=== PATIENT | female | born 1935 | race Asian ===

== ENCOUNTER 2019-01-31 17:45 | Inpatient (IN) | payer MEDICARE, OTHER ==
[2019-01-31] MEDS ORDERED: ONDANSETRON 4 MG INJ IV ×2 (18:30→20:00)
[2019-01-31] MEDS ORDERED: ACETAMINOPHEN 325 MG TAB PO (18:30)
[2019-01-31] MEDS: SOD CHLORIDE 0.9% 1,000 ML IV (18:55)
[2019-01-31 18:56] LABS: ADD MAN DIFF? NO
[2019-01-31 19:00] LABS: BASOPHIL # 0.1 10^3/ul (0.0-0.1); EOSINOPHILS # 0.3 10^3/ul (0.0-0.5); EOSINOPHILS % 5.1 % (0.0-7.0); HEMATOCRIT 25.5 % (37.0-47.0); LYMPHOCYTES # 1.4 10^3/ul (0.8-2.9); LYMPHOCYTES % 21.6 % (15.0-51.0); MEAN CORPUSCULAR HEMOGLOBIN 30.1 pg (29.0-33.0); MEAN CORPUSCULAR HGB CONC 31.4 g/dl (32.0-37.0); MEAN CORPUSCULAR VOLUME 95.9 fl (82.0-101.0); MEAN PLATELET VOLUME 11.1 fl (7.4-10.4); MONOCYTE # 0.6 10^3/ul (0.3-0.9); NEUTROPHIL # 3.9 10^3/ul (1.6-7.5); NUCLEATED RED BLOOD CELLS # 0.1 10^3/ul (0.0-0.0); NUCLEATED RED BLOOD CELLS% 1.8 /100WBC (0.0-0.0); PLATELET COUNT 204 10^3/UL (140-415); RED BLOOD COUNT 2.66 10^6/ul (4.20-5.40); RED CELL DISTRIBUTION WIDTH 15.6 % (11.5-14.5)
[2019-01-31 19:00] LABS: WHITE BLOOD COUNT 6.2 10^3/ul (4.8-10.8)
[2019-01-31 19:19] LABS: PROTIME 13.3 Sec (11.9-14.9)
[2019-01-31 19:20] LABS: PARTIAL THROMBOPLASTIN TIME 35.8 Sec (23.0-35.0)
[2019-01-31 19:25] LABS: ALANINE AMINOTRANSFERASE 334 IU/L (13-69); ALBUMIN 3.5 g/dl (3.3-4.9); ALBUMIN/GLOBULIN RATIO 1.09; ALKALINE PHOSPHATASE 324 IU/L (42-121); ANION GAP 9 (5-13); ASPARTATE AMINO TRANSFERASE 304 IU/L (15-46); BILIRUBIN,INDIRECT 0.6 mg/dl (0-1.1); BILIRUBIN,TOTAL 0.6 mg/dl (0.2-1.3); BLOOD UREA NITROGEN 30 mg/dl (7-20); CALCIUM 8.9 mg/dl (8.4-10.2); CARBON DIOXIDE 21 mmol/L (21-31); CHLORIDE 108 mmol/L (97-110); CREATINE KINASE 50 IU/L (23-200); CREATININE 1.58 mg/dl (0.44-1.00); GLUCOSE 108 mg/dl (70-220); POTASSIUM 4.5 mmol/L (3.5-5.1); SODIUM 138 mmol/L (135-144); TOTAL PROTEIN 6.7 g/dl (6.1-8.1)
[2019-01-31 19:36] LABS: CK INDEX 0.8; CK-MB 0.42 ng/ml (0.0-2.4); TROPONIN-I 0.014 ng/ml (0.000-0.120)
[2019-01-31] MEDS ORDERED: NACL 0.9% 3 ML SYG IV (20:00)
[2019-01-31] MEDS ORDERED: MECLIZINE 25 MG TAB PO (20:00)
[2019-01-31] MEDS ORDERED: DOCUSATE SODIUM 100 MG CAP PO (20:00)
[2019-01-31] MEDS ORDERED: ZOLPIDEM 5 MG TAB PO (20:00)
[2019-01-31 20:09] LABS: B-TYPE NATRIURETIC PEPTIDE 12500 PG/ML (0-450)
[2019-01-31 20:19] LABS: HAAIG REFLEX REFLEX FILED
[2019-01-31 20:58] LABS: HEPATITIS B SURFACE ANTIGEN NEGATIVE (NEGATIVE)
[2019-01-31] MEDS ORDERED: NON-FORMULARY/PATIENT OWN MED (Pravastatin Sodium* 40 MG) PO (21:00)
[2019-01-31 21:16] LABS: HEPATITIS B CORE ANTIBODY NEGATIVE (NEGATIVE); HEPATITIS C VIRAL ANTIBODY NEGATIVE (NEGATIVE)
[2019-02-01 01:42] LABS: IMMEDIATE SPIN CROSSMATCH 1 1
[2019-02-01] MEDS: PANTOPRAZOLE (EC) 40 MG TAB PO (06:04)
[2019-02-01] MEDS ORDERED: NON-FORMULARY/PATIENT OWN MED (Esomeprazole Magnesium 40 MG) PO (07:00)
[2019-02-01] MEDS: DRONEDARONE HYDROCHLORIDE 400 MG TAB PO (08:43)
[2019-02-01] MEDS: HYDROCHLOROTHIAZIDE 12.5 MG CAP PO (08:43)
[2019-02-01] MEDS: LOSARTAN 50 MG TAB PO (08:43)
[2019-02-01] MEDS ORDERED: NON-FORMULARY/PATIENT OWN MED (Losartan-Hydrochlorothiazide (Losartan-HCTZ) 1 TAB) PO (09:00)
[2019-02-01 09:06] LABS: ADD MAN DIFF? NO
[2019-02-01 09:16] LABS: BASOPHIL # 0.1 10^3/ul (0.0-0.1); EOSINOPHILS # 0.3 10^3/ul (0.0-0.5); EOSINOPHILS % 5.1 % (0.0-7.0); HEMATOCRIT 31.5 % (37.0-47.0); LYMPHOCYTES # 1.4 10^3/ul (0.8-2.9); LYMPHOCYTES % 21.4 % (15.0-51.0); MEAN CORPUSCULAR HEMOGLOBIN 29.4 pg (29.0-33.0); MEAN CORPUSCULAR HGB CONC 31.7 g/dl (32.0-37.0); MEAN CORPUSCULAR VOLUME 92.6 fl (82.0-101.0); MEAN PLATELET VOLUME 11.4 fl (7.4-10.4); MONOCYTE # 0.5 10^3/ul (0.3-0.9); MONOCYTES % 7.4 % (0.0-11.0); NEUTROPHIL # 4.1 10^3/ul (1.6-7.5); NEUTROPHILS % 64.6 % (39.0-77.0); NUCLEATED RED BLOOD CELLS # 0.1 10^3/ul (0.0-0.0); NUCLEATED RED BLOOD CELLS% 1.4 /100WBC (0.0-0.0); PLATELET COUNT 204 10^3/UL (140-415); RED CELL DISTRIBUTION WIDTH 15.9 % (11.5-14.5)
[2019-02-01 09:16] LABS: WHITE BLOOD COUNT 6.3 10^3/ul (4.8-10.8)
[2019-02-01 09:29] LABS: ALANINE AMINOTRANSFERASE 320 IU/L (13-69); ALBUMIN 3.4 g/dl (3.3-4.9); ALBUMIN/GLOBULIN RATIO 1.06; ALKALINE PHOSPHATASE 331 IU/L (42-121); ANION GAP 9 (5-13); ASPARTATE AMINO TRANSFERASE 217 IU/L (15-46); BILIRUBIN,INDIRECT 0.9 mg/dl (0-1.1); BILIRUBIN,TOTAL 0.9 mg/dl (0.2-1.3); BLOOD UREA NITROGEN 25 mg/dl (7-20); CALCIUM 8.9 mg/dl (8.4-10.2); CARBON DIOXIDE 20 mmol/L (21-31); CHLORIDE 110 mmol/L (97-110); CREATININE 1.38 mg/dl (0.44-1.00); GLUCOSE 99 mg/dl (70-220); POTASSIUM 4.3 mmol/L (3.5-5.1); SODIUM 139 mmol/L (135-144); TOTAL PROTEIN 6.6 g/dl (6.1-8.1)
[2019-02-01] MEDS: FUROSEMIDE 20 MG INJ IV (11:38)
[2019-02-01] MEDS: CALCIUM CARBONATE 500 MG CHEW TAB PO ×2 (12:12→20:58)
[2019-02-01] MEDS: PANTOPRAZOLE 40 MG INJ IV (17:34)
[2019-02-02] MEDS: PANTOPRAZOLE 40 MG INJ IV ×2 (06:25→19:10)
[2019-02-02 06:42] LABS: ADD MAN DIFF? NO
[2019-02-02 06:53] LABS: WHITE BLOOD COUNT 7.1 10^3/ul (4.8-10.8)
[2019-02-02 06:53] LABS: BASOPHIL # 0.1 10^3/ul (0.0-0.1); BASOPHILS % 0.7 % (0.0-2.0); EOSINOPHILS # 0.5 10^3/ul (0.0-0.5); EOSINOPHILS % 7.3 % (0.0-7.0); HEMOGLOBIN 9.4 g/dl (12.0-16.0); LYMPHOCYTES % 13.8 % (15.0-51.0); MEAN CORPUSCULAR HEMOGLOBIN 29.7 pg (29.0-33.0); MEAN CORPUSCULAR HGB CONC 32.4 g/dl (32.0-37.0); MEAN CORPUSCULAR VOLUME 91.5 fl (82.0-101.0); MONOCYTE # 0.6 10^3/ul (0.3-0.9); MONOCYTES % 8.9 % (0.0-11.0); NEUTROPHIL # 4.9 10^3/ul (1.6-7.5); NEUTROPHILS % 68.6 % (39.0-77.0); NUCLEATED RED BLOOD CELLS # 0.1 10^3/ul (0.0-0.0); NUCLEATED RED BLOOD CELLS% 1.3 /100WBC (0.0-0.0); PLATELET COUNT 215 10^3/UL (140-415); RED BLOOD COUNT 3.17 10^6/ul (4.20-5.40); RED CELL DISTRIBUTION WIDTH 15.5 % (11.5-14.5)
[2019-02-02 07:14] LABS: B-TYPE NATRIURETIC PEPTIDE 14400 PG/ML (0-450)
[2019-02-02 07:31] LABS: ALANINE AMINOTRANSFERASE 235 IU/L (13-69); ALBUMIN 3.3 g/dl (3.3-4.9); ALKALINE PHOSPHATASE 302 IU/L (42-121); ANION GAP 10 (5-13); ASPARTATE AMINO TRANSFERASE 84 IU/L (15-46); BLOOD UREA NITROGEN 24 mg/dl (7-20); CALCIUM 9.1 mg/dl (8.4-10.2); CARBON DIOXIDE 22 mmol/L (21-31); CHLORIDE 106 mmol/L (97-110); CREATININE 1.38 mg/dl (0.44-1.00); GLUCOSE 102 mg/dl (70-220); POTASSIUM 3.7 mmol/L (3.5-5.1); SODIUM 138 mmol/L (135-144); TOTAL PROTEIN 6.3 g/dl (6.1-8.1)
[2019-02-02] MEDS: LOSARTAN 50 MG TAB PO (09:27)
[2019-02-02] MEDS: HYDROCHLOROTHIAZIDE 12.5 MG CAP PO (09:27)
[2019-02-02] MEDS: DRONEDARONE HYDROCHLORIDE 400 MG TAB PO (09:27)
[2019-02-02] MEDS: CALCIUM CARBONATE 500 MG CHEW TAB PO (09:28)
[2019-02-02] MEDS ORDERED: CALCIUM CARBONATE 500 MG CHEW TAB PO (11:30)
[2019-02-02] MEDS: ATENOLOL 50 MG TAB PO (12:40)
[2019-02-03] MEDS: PANTOPRAZOLE 40 MG INJ IV ×3 (05:39→17:24)
[2019-02-03 07:36] LABS: ADD MAN DIFF? NO
[2019-02-03 07:48] LABS: WHITE BLOOD COUNT 5.6 10^3/ul (4.8-10.8)
[2019-02-03 07:48] LABS: BASOPHILS % 0.4 % (0.0-2.0); EOSINOPHILS # 0.6 10^3/ul (0.0-0.5); EOSINOPHILS % 10.5 % (0.0-7.0); HEMOGLOBIN 9.8 g/dl (12.0-16.0); LYMPHOCYTES # 1.2 10^3/ul (0.8-2.9); LYMPHOCYTES % 21.9 % (15.0-51.0); MEAN CORPUSCULAR HGB CONC 31.6 g/dl (32.0-37.0); MEAN CORPUSCULAR VOLUME 91.7 fl (82.0-101.0); MEAN PLATELET VOLUME 10.9 fl (7.4-10.4); MONOCYTE # 0.5 10^3/ul (0.3-0.9); MONOCYTES % 8.9 % (0.0-11.0); NEUTROPHIL # 3.3 10^3/ul (1.6-7.5); NEUTROPHILS % 58.1 % (39.0-77.0); NUCLEATED RED BLOOD CELLS # 0.1 10^3/ul (0.0-0.0); NUCLEATED RED BLOOD CELLS% 1.1 /100WBC (0.0-0.0); PLATELET COUNT 254 10^3/UL (140-415); RED BLOOD COUNT 3.38 10^6/ul (4.20-5.40); RED CELL DISTRIBUTION WIDTH 15.7 % (11.5-14.5)
[2019-02-03 08:07] LABS: ALANINE AMINOTRANSFERASE 185 IU/L (13-69); ALBUMIN 3.2 g/dl (3.3-4.9); ALBUMIN/GLOBULIN RATIO 1.03; ALKALINE PHOSPHATASE 278 IU/L (42-121); AMYLASE 95 U/L (11-123); ANION GAP 10 (5-13); ASPARTATE AMINO TRANSFERASE 55 IU/L (15-46); BILIRUBIN,INDIRECT 0.9 mg/dl (0-1.1); BILIRUBIN,TOTAL 0.9 mg/dl (0.2-1.3); BLOOD UREA NITROGEN 27 mg/dl (7-20); CALCIUM 9.3 mg/dl (8.4-10.2); CARBON DIOXIDE 23 mmol/L (21-31); CHLORIDE 108 mmol/L (97-110); CREATININE 1.36 mg/dl (0.44-1.00); GLUCOSE 92 mg/dl (70-220); LIPASE 67 U/L (23-300); POTASSIUM 3.9 mmol/L (3.5-5.1); SODIUM 141 mmol/L (135-144); TOTAL PROTEIN 6.3 g/dl (6.1-8.1)
[2019-02-03 08:10] LABS: CHOL/HDL RATIO 4.6 RATIO; CHOLESTEROL 152 mg/dl (100-200); HDL CHOLESTEROL 33 mg/dl (33-92); LDL CHOLESTEROL,CALCULATED 92 mg/dl; TRIGLYCERIDES 136 mg/dl (0-149)
[2019-02-03 08:10] LABS: MAGNESIUM 1.9 mg/dl (1.7-2.5)
[2019-02-03 08:25] LABS: FREE T4 (FREE THYROXINE) 1.62 ng/dl (0.85-1.93)
[2019-02-03 08:34] LABS: DIGOXIN < 0.4 ng/ml (1.0-2.0)
[2019-02-03] MEDS: LOSARTAN 50 MG TAB PO (09:22)
[2019-02-03] MEDS: HYDROCHLOROTHIAZIDE 12.5 MG CAP PO (09:22)
[2019-02-03] MEDS: DRONEDARONE HYDROCHLORIDE 400 MG TAB PO (09:22)
[2019-02-03] MEDS: ATENOLOL 50 MG TAB PO (09:23)
[2019-02-03] MEDS: FUROSEMIDE 40 MG INJ IV (19:53)
[2019-02-03] MEDS: SPIRONOLACTONE 25 MG TAB PO (20:30)
[2019-02-04] MEDS: EPOETIN ALFA-EPBX (NON-ESRD 10,000 UNIT/ML VIAL SC (00:30)
[2019-02-04] MEDS: PANTOPRAZOLE 40 MG INJ IV ×2 (05:07→17:12)
[2019-02-04 06:04] LABS: ADD MAN DIFF? NO; HAAIG REFLEX REFLEX FILED
[2019-02-04 06:11] LABS: BASOPHILS % 0.7 % (0.0-2.0); EOSINOPHILS # 0.8 10^3/ul (0.0-0.5); EOSINOPHILS % 12.6 % (0.0-7.0); HEMATOCRIT 32.5 % (37.0-47.0); HEMOGLOBIN 10.3 g/dl (12.0-16.0); LYMPHOCYTES # 1.4 10^3/ul (0.8-2.9); LYMPHOCYTES % 23.3 % (15.0-51.0); MEAN CORPUSCULAR HEMOGLOBIN 29.1 pg (29.0-33.0); MEAN CORPUSCULAR HGB CONC 31.7 g/dl (32.0-37.0); MEAN CORPUSCULAR VOLUME 91.8 fl (82.0-101.0); MEAN PLATELET VOLUME 10.5 fl (7.4-10.4); MONOCYTE # 0.6 10^3/ul (0.3-0.9); MONOCYTES % 9.9 % (0.0-11.0); NEUTROPHIL # 3.2 10^3/ul (1.6-7.5); NEUTROPHILS % 53.3 % (39.0-77.0); NUCLEATED RED BLOOD CELLS% 0.7 /100WBC (0.0-0.0); PLATELET COUNT 293 10^3/UL (140-415); RED BLOOD COUNT 3.54 10^6/ul (4.20-5.40); RED CELL DISTRIBUTION WIDTH 15.5 % (11.5-14.5)
[2019-02-04 06:36] LABS: ALANINE AMINOTRANSFERASE 169 IU/L (13-69); ALBUMIN 3.5 g/dl (3.3-4.9); ALBUMIN/GLOBULIN RATIO 1.06; ALKALINE PHOSPHATASE 318 IU/L (42-121); ANION GAP 10 (5-13); ASPARTATE AMINO TRANSFERASE 49 IU/L (15-46); BILIRUBIN,INDIRECT 0.9 mg/dl (0-1.1); BILIRUBIN,TOTAL 0.9 mg/dl (0.2-1.3); BLOOD UREA NITROGEN 37 mg/dl (7-20); CALCIUM 9.6 mg/dl (8.4-10.2); CARBON DIOXIDE 26 mmol/L (21-31); CHLORIDE 104 mmol/L (97-110); CREATININE 1.57 mg/dl (0.44-1.00); GLUCOSE 99 mg/dl (70-220); MAGNESIUM 1.8 mg/dl (1.7-2.5); POTASSIUM 3.7 mmol/L (3.5-5.1); SODIUM 140 mmol/L (135-144); TOTAL PROTEIN 6.8 g/dl (6.1-8.1)
[2019-02-04 06:46] LABS: B-TYPE NATRIURETIC PEPTIDE 13700 PG/ML (0-450)
[2019-02-04 07:07] LABS: HEPATITIS B SURFACE ANTIGEN NEGATIVE (NEGATIVE)
[2019-02-04 07:25] LABS: HEPATITIS B CORE ANTIBODY NEGATIVE (NEGATIVE); HEPATITIS C VIRAL ANTIBODY NEGATIVE (NEGATIVE)
[2019-02-04 07:31] LABS: HEPATITIS B SURFACE ANTIBODY NEGATIVE (NEGATIVE)
[2019-02-04] MEDS: SPIRONOLACTONE 25 MG TAB PO (09:03)
[2019-02-04] MEDS: ATENOLOL 50 MG TAB PO (09:03)
[2019-02-04] MEDS: POTASSIUM CHLORIDE (SR) 20 MEQ TAB PO (09:03)
[2019-02-04] MEDS: LOSARTAN 50 MG TAB PO (09:03)
[2019-02-04] MEDS: DRONEDARONE HYDROCHLORIDE 400 MG TAB PO (09:04)
[2019-02-04] MEDS: FUROSEMIDE 40 MG INJ IV (09:04)
[2019-02-04] MEDS: ENOXAPARIN 30 MG/0.3 ML SYG SC (09:10)
[2019-02-04 16:45] LABS: OCCULT BLOOD STOOL NEGATIVE (NEGATIVE)
[2019-02-05] MEDS: PANTOPRAZOLE 40 MG INJ IV ×2 (06:08→17:35)
[2019-02-05 07:16] LABS: ADD MAN DIFF? NO
[2019-02-05 07:21] LABS: WHITE BLOOD COUNT 5.5 10^3/ul (4.8-10.8)
[2019-02-05 07:21] LABS: BASOPHILS % 0.6 % (0.0-2.0); EOSINOPHILS # 0.8 10^3/ul (0.0-0.5); EOSINOPHILS % 14.5 % (0.0-7.0); HEMATOCRIT 33.6 % (37.0-47.0); HEMOGLOBIN 10.7 g/dl (12.0-16.0); LYMPHOCYTES # 2.1 10^3/ul (0.8-2.9); MEAN CORPUSCULAR HEMOGLOBIN 29.6 pg (29.0-33.0); MEAN CORPUSCULAR HGB CONC 31.8 g/dl (32.0-37.0); MEAN CORPUSCULAR VOLUME 93.1 fl (82.0-101.0); MEAN PLATELET VOLUME 10.4 fl (7.4-10.4); MONOCYTE # 0.6 10^3/ul (0.3-0.9); MONOCYTES % 10.8 % (0.0-11.0); NEUTROPHILS % 35.7 % (39.0-77.0); NUCLEATED RED BLOOD CELLS # 0.1 10^3/ul (0.0-0.0); NUCLEATED RED BLOOD CELLS% 0.9 /100WBC (0.0-0.0); PLATELET COUNT 333 10^3/UL (140-415); RED BLOOD COUNT 3.61 10^6/ul (4.20-5.40); RED CELL DISTRIBUTION WIDTH 15.6 % (11.5-14.5)
[2019-02-05 07:43] LABS: ALANINE AMINOTRANSFERASE 128 IU/L (13-69); ALBUMIN 3.5 g/dl (3.3-4.9); ALBUMIN/GLOBULIN RATIO 1.12; ALKALINE PHOSPHATASE 274 IU/L (42-121); ANION GAP 11 (5-13); ASPARTATE AMINO TRANSFERASE 35 IU/L (15-46); BILIRUBIN,INDIRECT 0.7 mg/dl (0-1.1); BILIRUBIN,TOTAL 0.7 mg/dl (0.2-1.3); BLOOD UREA NITROGEN 48 mg/dl (7-20); CALCIUM 9.3 mg/dl (8.4-10.2); CARBON DIOXIDE 26 mmol/L (21-31); CHLORIDE 104 mmol/L (97-110); CREATININE 2.08 mg/dl (0.44-1.00); GLUCOSE 93 mg/dl (70-220); MAGNESIUM 1.8 mg/dl (1.7-2.5); POTASSIUM 3.7 mmol/L (3.5-5.1); SODIUM 141 mmol/L (135-144); TOTAL PROTEIN 6.6 g/dl (6.1-8.1)
[2019-02-05 07:52] LABS: B-TYPE NATRIURETIC PEPTIDE 13800 PG/ML (0-450)
[2019-02-05] MEDS: SPIRONOLACTONE 25 MG TAB PO (08:20)
[2019-02-05] MEDS: DRONEDARONE HYDROCHLORIDE 400 MG TAB PO (08:21)
[2019-02-05] MEDS: ATENOLOL 25 MG TAB PO ×2 (08:22→21:06)
[2019-02-05] MEDS: ENOXAPARIN 30 MG/0.3 ML SYG SC (08:25)
[2019-02-05] MEDS ORDERED: FUROSEMIDE 40 MG TAB PO ×2 (09:00)
[2019-02-05 09:42] LABS: ERYTHROCYTE SEDIMENTATION RATE 42 mm/Hr (0-30)
[2019-02-05] MEDS: HYDROCHLOROTHIAZIDE 12.5 MG CAP PO (10:19)
[2019-02-06] MEDS: PANTOPRAZOLE 40 MG INJ IV ×2 (05:31→18:34)
[2019-02-06 08:01] LABS: ANION GAP 8 (5-13); BLOOD UREA NITROGEN 46 mg/dl (7-20); CALCIUM 9.1 mg/dl (8.4-10.2); CARBON DIOXIDE 26 mmol/L (21-31); CHLORIDE 103 mmol/L (97-110); CREATININE 1.84 mg/dl (0.44-1.00); GLUCOSE 88 mg/dl (70-220); POTASSIUM 3.8 mmol/L (3.5-5.1); SODIUM 137 mmol/L (135-144)
[2019-02-06] MEDS: DRONEDARONE HYDROCHLORIDE 400 MG TAB PO (08:24)
[2019-02-06] MEDS: ATENOLOL 25 MG TAB PO ×2 (08:25→22:01)
[2019-02-06] MEDS: ENOXAPARIN 30 MG/0.3 ML SYG SC (08:28)
[2019-02-07] MEDS: PANTOPRAZOLE 40 MG INJ IV (06:27)
[2019-02-07 06:53] LABS: ADD MAN DIFF? NO
[2019-02-07 06:59] LABS: BASOPHILS % 0.6 % (0.0-2.0); EOSINOPHILS # 0.7 10^3/ul (0.0-0.5); EOSINOPHILS % 13.9 % (0.0-7.0); HEMATOCRIT 32.1 % (37.0-47.0); HEMOGLOBIN 10.2 g/dl (12.0-16.0); LYMPHOCYTES # 1.7 10^3/ul (0.8-2.9); LYMPHOCYTES % 33.8 % (15.0-51.0); MEAN CORPUSCULAR HEMOGLOBIN 29.4 pg (29.0-33.0); MEAN CORPUSCULAR HGB CONC 31.8 g/dl (32.0-37.0); MEAN CORPUSCULAR VOLUME 92.5 fl (82.0-101.0); MEAN PLATELET VOLUME 10.2 fl (7.4-10.4); MONOCYTE # 0.5 10^3/ul (0.3-0.9); MONOCYTES % 9.3 % (0.0-11.0); NEUTROPHIL # 2.1 10^3/ul (1.6-7.5); NEUTROPHILS % 42.2 % (39.0-77.0); NUCLEATED RED BLOOD CELLS% 0.6 /100WBC (0.0-0.0); PLATELET COUNT 355 10^3/UL (140-415); RED BLOOD COUNT 3.47 10^6/ul (4.20-5.40); RED CELL DISTRIBUTION WIDTH 15.9 % (11.5-14.5)
[2019-02-07 07:24] LABS: ALANINE AMINOTRANSFERASE 89 IU/L (13-69); ALBUMIN 3.1 g/dl (3.3-4.9); ALBUMIN/GLOBULIN RATIO 1.03; ALKALINE PHOSPHATASE 210 IU/L (42-121); ANION GAP 9 (5-13); ASPARTATE AMINO TRANSFERASE 29 IU/L (15-46); BILIRUBIN,INDIRECT 0.5 mg/dl (0-1.1); BILIRUBIN,TOTAL 0.5 mg/dl (0.2-1.3); BLOOD UREA NITROGEN 50 mg/dl (7-20); CALCIUM 9.3 mg/dl (8.4-10.2); CARBON DIOXIDE 25 mmol/L (21-31); CHLORIDE 104 mmol/L (97-110); CREATININE 1.79 mg/dl (0.44-1.00); GLUCOSE 85 mg/dl (70-220); MAGNESIUM 1.9 mg/dl (1.7-2.5); POTASSIUM 3.8 mmol/L (3.5-5.1); SODIUM 138 mmol/L (135-144); TOTAL PROTEIN 6.1 g/dl (6.1-8.1)
[2019-02-07 07:25] LABS: B-TYPE NATRIURETIC PEPTIDE 10600 PG/ML (0-450)
[2019-02-07] MEDS: ATENOLOL 25 MG TAB PO (08:46)
[2019-02-07] MEDS: DRONEDARONE HYDROCHLORIDE 400 MG TAB PO (08:46)
[2019-02-07] MEDS: ENOXAPARIN 30 MG/0.3 ML SYG SC (09:00)
== END 2019-02-07 18:13 | disposition home health service (06) | DRG 293 ==
LOC: E/R 17:45 → TEL 18:30
PROC: 30233N1 Transfusion of Nonautologous Red Blood Cells into Peripheral Vein, Percutaneous Approach (ICD-10-PCS; principal; 2019-02-01)
DX: I13.0 Hypertensive heart and chronic kidney disease with heart failure and stage 1 through stage 4 chronic kidney disease, or unspecified chronic kidney disease (principal); I49.5 Sick sinus syndrome; I48.0 Paroxysmal atrial fibrillation; K76.0 Fatty (change of) liver, not elsewhere classified; D64.9 Anemia, unspecified; I50.9 Heart failure, unspecified; N18.9 Chronic kidney disease, unspecified; E78.5 Hyperlipidemia, unspecified; Z95.0 Presence of cardiac pacemaker
CPT/HCPCS: 36415; 36430; 71045; 74176; 76700; 80048; 80053; 80061; 80162; 82150; 82270; 82550; 82553; 83690; 83735; 83880; 84439; 84443; 84484; 85025; 85610; 85651; 85730; 86704; 86706; 86709; 86803; 86850; 86900; 86901; 86920; 87340; 93005; 93306; 99285-25; G0378

== ENCOUNTER 2019-02-25 06:34 | Day surgery (SDC) | payer MEDICARE, OTHER ==
[2019-02-25 07:43] LABS: ADD MAN DIFF? NO
[2019-02-25 07:47] LABS: WHITE BLOOD COUNT 5.2 10^3/ul (4.8-10.8)
[2019-02-25 07:47] LABS: BASOPHIL # 0.1 10^3/ul (0.0-0.1); EOSINOPHILS # 0.5 10^3/ul (0.0-0.5); EOSINOPHILS % 9.5 % (0.0-7.0); HEMATOCRIT 33.9 % (37.0-47.0); HEMOGLOBIN 10.5 g/dl (12.0-16.0); LYMPHOCYTES # 1.1 10^3/ul (0.8-2.9); LYMPHOCYTES % 21.7 % (15.0-51.0); MEAN CORPUSCULAR HEMOGLOBIN 29.6 pg (29.0-33.0); MEAN CORPUSCULAR VOLUME 95.5 fl (82.0-101.0); MEAN PLATELET VOLUME 11.4 fl (7.4-10.4); MONOCYTE # 0.4 10^3/ul (0.3-0.9); MONOCYTES % 7.8 % (0.0-11.0); NEUTROPHIL # 3.1 10^3/ul (1.6-7.5); NEUTROPHILS % 59.8 % (39.0-77.0); PLATELET COUNT 168 10^3/UL (140-415); RED BLOOD COUNT 3.55 10^6/ul (4.20-5.40); RED CELL DISTRIBUTION WIDTH 16.3 % (11.5-14.5)
[2019-02-25 08:04] LABS: INR 1.03; PROTIME 13.6 Sec (11.9-14.9); PT RATIO 1.1
[2019-02-25 08:05] LABS: PARTIAL THROMBOPLASTIN TIME 33.7 Sec (23.0-35.0)
[2019-02-25] MEDS ORDERED: POLYMYXIN/BACITRACIN 1L IRRIG IRR (08:17)
[2019-02-25 08:24] LABS: ALANINE AMINOTRANSFERASE 81 IU/L (13-69); ALBUMIN 3.6 g/dl (3.3-4.9); ALKALINE PHOSPHATASE 168 IU/L (42-121); ANION GAP 9 (5-13); ASPARTATE AMINO TRANSFERASE 50 IU/L (15-46); BILIRUBIN,INDIRECT 0.7 mg/dl (0-1.1); BILIRUBIN,TOTAL 0.7 mg/dl (0.2-1.3); CALCIUM 9.7 mg/dl (8.4-10.2); CARBON DIOXIDE 22 mmol/L (21-31); CHLORIDE 112 mmol/L (97-110); GLUCOSE 111 mg/dl (70-220); SODIUM 143 mmol/L (135-144); TOTAL PROTEIN 6.6 g/dl (6.1-8.1)
[2019-02-25 08:27] LABS: BLOOD UREA NITROGEN 29 mg/dl (7-20); CREATININE 1.88 mg/dl (0.44-1.00)
[2019-02-25] MEDS ORDERED: LIDOCAINE 1%/EPI (1:100,000) (MDV) 20 ML (08:39)
[2019-02-25] MEDS ORDERED: MIDAZOLAM 1 MG/ML 2 ML INJ (08:39)
[2019-02-25] MEDS ORDERED: FENTAnyl 50 MCG/ML VIAL (08:39)
[2019-02-25] MEDS ORDERED: CEFAZOLIN 1 GM/50 ML (PMX) 100 ML IVPB (08:39)
[2019-02-25] MEDS ORDERED: SOD CHLORIDE 0.9% 500 ML (08:39)
[2019-02-25] MEDS ORDERED: HYDROmorphONE 2 MG/ML SYG (09:12)
[2019-02-25] MEDS ORDERED: morphine 2 MG INJ IV (10:00)
[2019-02-25] MEDS ORDERED: ONDANSETRON 4 MG INJ (10:03)
== END 2019-02-25 14:30 | disposition home or self-care (01) ==
LOC: SDS 06:34
DX: I49.5 Sick sinus syndrome (principal); I10 Essential (primary) hypertension; I48.91 Unspecified atrial fibrillation; I48.92 Unspecified atrial flutter; Z79.02 Long term (current) use of antithrombotics/antiplatelets
CPT/HCPCS: 33228; 33264; 80053; 85025; 85610; 85730; 93005

== ENCOUNTER 2019-03-11 09:19 | Day surgery (SDC) | payer MEDICARE, OTHER ==
[2019-03-11] MEDS ORDERED: LIDOCAINE 2% (SDV) 5 ML INJ (11:27)
[2019-03-11] MEDS ORDERED: PROPOFOL 20 ML (11:27)
[2019-03-11] MEDS ORDERED: LABETALOL HCL 20MG INJ IV (12:00)
[2019-03-11] MEDS ORDERED: EPHEDrine 25 MG/5 ML SYG IV (12:00)
[2019-03-11] MEDS ORDERED: hydrALAzine 20 MG INJ IV (12:00)
[2019-03-11] MEDS ORDERED: ONDANSETRON 4 MG INJ IV (12:00)
== END 2019-03-11 14:11 | disposition home or self-care (01) ==
LOC: GIL 09:19
DX: K29.30 Chronic superficial gastritis without bleeding (principal)
CPT/HCPCS: 43239; 88305; 88312